=== PATIENT | female | born 1985 | race Caucasian/White ===

== ENCOUNTER 2019-07-13 07:01 | Emergency (ER) | payer MEDICAID ==
[~2019-07-13] VITALS: Ht 157.5 cm; Wt 52.3 kg
[2019-07-13] MEDS ORDERED: FLOUXETINE PO (07:21)
[2019-07-13] MEDS ORDERED: GABA-531 PO (07:21)
[2019-07-13] MEDS ORDERED: ALPR0.255 PO (07:21)
[2019-07-13] MEDS ORDERED: IBUPROFEN 600 MG TABLET PO ONE (08:45)
[2019-07-13] MEDS ORDERED: ONDANSETRON HCL 4 MG TABLET PO ONE (08:45)
[2019-07-13 11:07] VITALS: BP 118/51
== END 2019-07-13 11:11 | disposition short-term general hospital (02) ==
LOC: EMS 07:01
DX: S02.119A Unspecified fracture of occiput, initial encounter for closed fracture (principal); F41.9 Anxiety disorder, unspecified; F12.90 Cannabis use, unspecified, uncomplicated; W05.1XXA Fall from non-moving nonmotorized scooter, initial encounter; Y93.I9 Activity, other involving external motion; Y92.89 Other specified places as the place of occurrence of the external cause; Y99.8 Other external cause status
CPT/HCPCS: 72125; 70450; 99285; Q0162